=== PATIENT | male | born 1990 | race Caucasian/White ===

== ENCOUNTER 2018-10-09 16:03 | Emergency (ER) | payer OTHER, SELFPAY ==
[~2018-10-09] VITALS: Ht 182.9 cm; Wt 99.3 kg
--- NOTE | 2018-10-09 16:21 | NUR ---
ARRIVAL PATIENT ARRIVED TO ED ROOM 6 AMBULATORY WITH C/O RADIATING PAIN TO LEFT LEG. NO SIGNS OF DISTRESS NOTED. PLACED ON MONITOR. DR RIVAS NOTIFIED OF PATIENT ARRIVAL
[2018-10-09 16:36] VITALS: BP 151/88
--- NOTE | 2018-10-09 17:55 | ER.PDOC ---
General Chief Complaint: Extremities Stated Complaint: LEG PAIN Time seen by MD: 17:55 Source: patient History of Present Illness Initial Comments Patient comes to the ED stating that he has had a three day history of left lower extremity sharp pain which came on gradually without any provocation. Tried OTC APAP w/ only marginal relief of symptoms. No h/o trauma, or overuse. Prev h/o same and has had sciatica in the past. No family history of VTE in him or first-degree relatives. Denies numbness/tingling/weakness. Denies any other somatic complaints. 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 LLE: mild left gluteal TTP, questionable numbness/tingling on posterior Skin: warm, dry, right posterior back lesion Neuro: no focal deficits noted, CN II-XII grossly intact to inspection, moves all extremities well, ambulates easily w/o pain Psych: normal affect Results/Orders Results/Orders Orders - JORJE ERICKSON MD Methocarbamol (Robaxin) (10/09/18 18:00) Naproxen (Naproxen) (10/09/18 18:00) Acetaminophen (Tylenol) (10/09/18 18:00) Acetaminophen (Tylenol) (10/09/18 18:18) Naproxen (Naproxen) (10/09/18 18:18) Methocarbamol (Robaxin) (10/09/18 18:18) Vital Signs Date Time Temp Pulse Resp B/P (MAP) Pulse Ox O2 Delivery O2 Flow Rate FiO2 10/09/18 18:30 98.1 82 18 98 Room Air 10/09/18 18:23 82 18 138/89 (105) 98 Room Air 10/09/18 16:36 98.1 92 18 151/88 (109) 97 Room Air 10/09/18 16:30 98.1 92 18 10/09/18 16:30 98.1 92 18 97 Room Air Administered Medications Medications (Trade) Dose Ordered Sig/Demetris Route PRN Reason Start Time Stop Time Status Last Admin Dose Admin Acetaminophen (Tylenol) 1,000 mg STAT STAT PO 10/09/18 18:00 10/09/18 18:03 DC 10/09/18 18:21 1,000 MG Methocarbamol (Robaxin) 1,000 mg STAT STAT PO 10/09/18 18:00 10/09/18 18:03 DC 10/09/18 18:21 1,000 MG Naproxen (Naproxen) 500 mg OT ONCE PO 10/09/18 18:00 10/09/18 18:03 DC 10/09/18 18:21 500 MG Progress Progress Patient findings consistent w/ left leg sciatica, muscle strain, failure of outpatient treatment. Given analgesics, antispasmodics with relief of symptoms. Re-eval at 1825 and doing better, discharged home in good condition on methocarbamol, OTC analgesics as needed. Departure Time of Disposition: 18:45 Disposition: 01 HOME, SELF-CARE Impression: Primary Impression: Muscle strain of left lower leg Condition: Improved Patient Instructions: Muscle Strain Referrals: PCP,UNKNOWN (PCP) PRIMARY CARE PROVIDER Additional Instructions: As we discussed, there were no findings which were worrisome or concerning. You can take the muscle spasm medicine, methocarbamol (trade name Robaxin�) as needed in addition to over the counter pain medicines. Stop smoking IT WILL KILL YOU !!!!!!!!!!!!!!!!!!!!!!!!! Thank you again for your visit and for trusting us with your care. Dr Jorje Erickson (tree - [place]'- knee) Duration or Time Spent with Pa: 20 Problem Qualifiers Primary Impression: Muscle strain of left lower leg Encounter type: initial encounter Qualified Codes: S86.912A - Strain of unspecified muscle(s) and tendon(s) at lower leg level, left leg, initial encounter JORJE ERICKSON MD Oct 09, 2018 17:55
[2018-10-09] MEDS ORDERED: NAPROXEN PO ONE ×2 (18:00→18:18)
[2018-10-09] MEDS ORDERED: ROBAXIN PO STA (18:00)
[2018-10-09] MEDS ORDERED: TYLENOL PO STA (18:00)
[2018-10-09] MEDS ORDERED: ROBAXIN ONE (18:18)
[2018-10-09] MEDS ORDERED: TYLENOL PO ONE (18:18)
[2018-10-09 18:23] VITALS: BP 138/89
[2018-10-09 18:30] VITALS: BP 138/89
== END 2018-10-09 18:39 | disposition home or self-care (01) ==
LOC: ER 16:03
DX: S86.912A Strain of unspecified muscle(s) and tendon(s) at lower leg level, left leg, initial encounter (principal); F17.210 Nicotine dependence, cigarettes, uncomplicated; F15.10 Other stimulant abuse, uncomplicated; X58.XXXA Exposure to other specified factors, initial encounter; Y93.89 Activity, other specified; Y92.89 Other specified places as the place of occurrence of the external cause; Y99.8 Other external cause status
CPT/HCPCS: 99284; A9150